=== PATIENT | female | born 1970 | race Caucasian/White ===

== ENCOUNTER → 2017-07-13 | Outpatient (CLI) | payer OTHER ==
--- NOTE | 2017-07-13 13:54 | RAD ---
Lumbar spine, 5 views, 07/13/2017: History: Low back pain The lumbar vertebral heights are well-maintained. The intervertebral disks baster fairly well preserved. There are minimal scattered marginal spurs. There are mild sclerotic changes involving lower lumbar facet joints. No fracture or dislocation is identified. Aortic calcific plaquing is present. IMPRESSION: 1. Mild degenerative change. 2. No acute bony abnormality is detected.
--- NOTE | 2017-07-13 13:55 | RAD ---
Pelvis with both hips, 5 views, 07/13/2017: History: Back and hip pain No fracture or dislocation is identified. The hip joints are well-maintained with only minimal marginal spurring. The periarticular soft tissues are unremarkable. IMPRESSION: No acute pelvic or hip abnormality is detected.
== END | disposition home or self-care (01) ==
LOC: PMG 12:54 → EDBD 12:54
PROVIDERS: ATTEND Physician Assistant Medical
DX: M54.5 Low back pain (principal); M25.559 Pain in unspecified hip
CPT/HCPCS: 72110; 73521